=== PATIENT | male | born 2000 | race Caucasian/White ===

== ENCOUNTER 2018-10-16 14:40 | Emergency (ER) | payer SELFPAY ==
--- NOTE | 2018-10-16 15:49 | RAD ---
TWO VIEWS OF THE CHEST: 10/16/18 PROVIDED CLINICAL HISTORY: Chest pain. FINDINGS: The cardiac and mediastinal silhouette is within normal limits. The lungs appears clear. No pleural f luid or pneumothorax apparent. IMPRESSION: No evidence for an acute cardiopulmonary process. POS: [facility]
[2018-10-16 15:50] LABS: #Lymphocytes 1.5 thou/uL (1.20-3.40); #Monocytes 0.7 thou/uL (0.11-0.59); #Neutrophils 6.8 thou/uL (1.40-6.50); %Basophils 0.3 % (0.0-1.0); %Eosinophils 0.2 % (0.0-10.0); %Lymphocytes 16.4 % (28.0-48.0); %Monocytes 7.6 % (0.0-4.0); %Neutrophils 75.5 % (31.0-61.0); Hemoglobin 15.3 g/dL (14.0-18.0); Mean Corpuscular HGB CONC 34.4 g/dL (32.0-36.0); Mean Corpuscular Hemoglobin 32.8 pg (25.0-35.0); Mean Corpuscular Volume 95.3 fL (78.0-98.0); Mean Platelet Volume 7.5 fL (7.4-10.4); Platelet Count 227 thou/uL (130-400); RBC Distribution Width 11.1 % (11.5-14.5); Red Blood Cell (RBC) Count 4.66 mill/uL (4.00-5.20)
[2018-10-16 16:12] LABS: ALT (SGPT) 18 U/L (8-55); AST (SGOT) 17 U/L (5-34); Albumin 4.5 g/dL (3.5-5.0); Alkaline Phosphatase 72 U/L (Less than 750); Anion Gap 12 mmol/L (10-20); BUN (Urea Nitrogen) 7 mg/dL (8.9-20.6); Bilirubin, Total 0.5 mg/dL (0.2-1.2); Calc. Creatinine Clearance 0 mL/min (70-130); Calcium 9.4 mg/dL (7.8-10.44); Carbon Dioxide 23 mmol/L (22-29); Chloride 107 mmol/L (98-107); Estimated GFR-MDRD Greater than 90; Globulin 2.6 g/dL (2.4-3.5); Glucose 98 mg/dL (70-105); Potassium 4.2 mmol/L (3.5-5.1); Protein, Total 7.1 g/dL (6.0-8.3); Sodium 138 mmol/L (136-145)
--- NOTE | 2018-10-21 13:17 | EKG ---
Test Reason : Blood Pressure : / mmHG Vent. Rate : 087 BPM Atrial Rate : 087 BPM P-R Int : 134 ms QRS Dur : 088 ms QT Int : 338 ms P-R-T Axes : 079 084 078 degrees QTc Int : 406 ms Normal sinus rhythm Normal ECG Confirmed by JANET GONZALEZ DO ([id number]), magazine editor JONE GO ([id number]) on 10/21/2018 1:17:25 PM Referred By: Confirmed By:JANET GONZALEZ DO
== END 2018-10-16 17:03 | disposition home or self-care (01) ==
LOC: ERS 14:40
DX: R55 Syncope and collapse (principal); R20.0 Anesthesia of skin
CPT/HCPCS: 36415; 71046; 80053; 84484; 85025; 93005